=== PATIENT | male | born 1955 | race Caucasian/White ===

== ENCOUNTER 2017-08-20 16:23 | Emergency (ER) | payer OTHER ==
[~2017-08-20] VITALS: Ht 180.3 cm; Wt 80.9 kg
[~2017-08-20 16:23] MED LIST: AMOX TR-K CLV1 EAC4; NADOLOL40 MG; NEXAVAR200 MG; NOHOMEMEDS
[2017-08-20 18:31] LABS: BASOPHIL (%) 0.7 % (0-1); BASOPHIL COUNT 0.1 K/uL (0-0.1); EOSINOPHIL (%) 2.7 % (0-5); EOSINOPHIL COUNT 0.3 K/uL (0-0.3); HEMATOCRIT 37.6 % (38.0-50.0); HEMOGLOBIN 13.1 G/DL (12.5-16.6); IMMATURE GRANULOCYTE (%) 1.5 % (0.0-0.7); LYMPHOCYTE (%) 9.3 % (15-42); LYMPHOCYTE COUNT 0.9 K/uL (1.0-2.8); MCH 28.5 PG (29.0-34.0); MCHC 34.8 G/DL (30.0-36.0); MCV 81.7 FL (86-99); MONOCYTE (%) 8.2 % (3-12); MONOCYTE COUNT 0.8 K/uL (0-0.8); NEUTROPHIL (%) 77.6 % (45-76); NEUTROPHIL COUNT 7.4 K/uL (1.8-6.4); PLATELET COUNT 253 K/uL (156-360); RBC DIS.WIDTH-CV 23.1 % (11.8-14.6); RBC DIS.WIDTH-SD 66.8 % (39-53); WHITE BLOOD COUNT 9.5 K/uL (4.1-10.2)
[2017-08-20 18:50] LABS: ALBUMIN 3.8 g/dL (3.2-4.8); CHLORIDE 109 mEq/L (99-109); POTASSIUM 4.2 mEq/L (3.7-5.4); SODIUM 139 mEq/L (136-147)
[2017-08-20 18:52] LABS: GLUCOSE 128 mg/dL (70-99); TOTAL PROTEIN 6.8 g/dL (6.4-8.3)
[2017-08-20 18:56] LABS: ALKALINE PHOSPHATASE 324 IU/L (3-129); CREATININE 1.9 mg/dL (0.6-1.3); GFR ESTIMATE (CALCULATED) 38 mL/min/ (58.99-99999)
[2017-08-20 18:57] LABS: AST (GOT) 53 IU/L (2-34); UREA NITROGEN (BUN) 27 mg/dL (9-23)
[2017-08-20 18:59] LABS: ALT (GPT) 73 IU/L (3-49)
[2017-08-20 19:19] LABS: DIRECT BILIRUBIN 27.4 mg/dL (0.0-0.3); TOTAL BILIRUBIN 37.2 mg/dL (0.0-1.0)
[2017-08-20 19:43] LABS: LIPASE 3 U/L (1.0-51.0)
[2017-08-20 21:00] LABS: INTER. NORMALIZED RATIO 1.1
[2017-08-20] MEDS ORDERED: AMLODIPINE BES2.5 MG PO (21:20)
[2017-08-20] MEDS ORDERED: PROGRAF1 MG PO ×2 (21:20)
[2017-08-20] MEDS ORDERED: ATARAX,VISTARIL25 MG PO (21:20)
[2017-08-20] MEDS ORDERED: CYANOCOBALAM1000 MCG PO (21:21)
[2017-08-20] MEDS ORDERED: ADULT ASPIRIN R81 MG PO (21:21)
[2017-08-20] MEDS ORDERED: TAB-A-VITE1 EACH PO (21:21)
[2017-08-20 22:12] LABS: PTT 33.5 SEC (25-37)
[2017-08-21 07:24] VITALS: BP 120/85
== END 2017-08-21 07:49 | disposition short-term general hospital (02) ==
LOC: EME 16:23
PROVIDERS: Emergency Medicine; Physician Assistant
DX: K72.90 Hepatic failure, unspecified without coma (principal); C22.0 Liver cell carcinoma; F17.200 Nicotine dependence, unspecified, uncomplicated; Z94.4 Liver transplant status; Z87.19 Personal history of other diseases of the digestive system
CPT/HCPCS: 70450; 74176; 80048; 80076; 81003; 82140; 83605; 83690; 85025; 85610; 85730; 87040; 99281; 99285